=== PATIENT | female | born 1990 | race Caucasian/White ===

== ENCOUNTER 2023-03-29 22:13 | Emergency (ER) | payer MEDICAID ==
[~2023-03-29] VITALS: Ht 165.1 cm; Wt 115.7 kg
[2023-03-29 22:24] VITALS: BP 137/85; PULSE 83; RESP 18; TEMP 97.8; O2SAT 92
[2023-03-29] MEDS ORDERED: ALBUTEROL SULFATE/IPRATROPIU 3 ML SOL IH ONE (23:30)
[2023-03-29 23:49] VITALS: PULSE 89; RESP 17; O2SAT 96; O2SAT 97
[2023-03-30] MEDS ORDERED: AMOX1TAB8 PO (00:04)
[2023-03-30] MEDS ORDERED: METH4TAB1 PO (00:04)
[2023-03-30] MEDS ORDERED: ALBU0.0912 INH (00:04)
[2023-03-30 00:25] VITALS: BP 123/77; PULSE 80; RESP 19; TEMP 98.2; O2SAT 98
== END 2023-03-30 00:10 | disposition home or self-care (01) ==
LOC: MED 22:13
DX: J20.9 Acute bronchitis, unspecified (principal); E03.9 Hypothyroidism, unspecified; Z79.899 Other long term (current) drug therapy
CPT/HCPCS: 71045; 94640; 99283